=== PATIENT | female | born 1960 | race Caucasian/White ===

== ENCOUNTER 2016-09-29 10:30 | Emergency (ER) | payer BC ==
[2016-09-29 11:24] LABS: HEMOGLOBIN 13.6 gm/dl (12.3-15.3); RED BLOOD COUNT 4.4 M/UL (4.00-5.10); WHITE BLOOD COUNT 13.7 K/UL (4.5-11.0)
[2016-09-29 11:54] LABS: BUN/CREATININE RATIO 24 (0-10)
== END 2016-09-29 14:18 | disposition home or self-care (01) ==
LOC: ER1 10:30
PROVIDERS: Emergency Medicine
DX: J20.9 Acute bronchitis, unspecified (principal); R09.1 Pleurisy; R00.0 Tachycardia, unspecified; I10 Essential (primary) hypertension; Z79.899 Other long term (current) drug therapy
CPT/HCPCS: 36415; 71010; 71260; 80053; 81001; 82550; 82553; 83874; 84484; 85025; 93005; 94664; 96361; 96374; 96375; 99285; J1885; J2405; J2930; J7030; J7050; Q9962

== ENCOUNTER 2020-06-26 18:06 | Emergency (ER) | payer MEDICARE ==
[2020-06-26] MEDS ORDERED: HYDROCODON-ACE1 EAC4 PO (19:26)
== END 2020-06-26 19:58 | disposition home or self-care (01) ==
LOC: ER1 18:06
DX: S76.012A Strain of muscle, fascia and tendon of left hip, initial encounter (principal); S39.012A Strain of muscle, fascia and tendon of lower back, initial encounter; M48.36 Traumatic spondylopathy, lumbar region; E78.5 Hyperlipidemia, unspecified; F17.210 Nicotine dependence, cigarettes, uncomplicated; W19.XXXA Unspecified fall, initial encounter; Y92.410 Unspecified street and highway as the place of occurrence of the external cause
CPT/HCPCS: 72131; 73502; 73562; 99284